=== PATIENT | male | born 1960 | race Two or more races ===

== ENCOUNTER 2018-07-27 11:06 | Emergency (ER) | payer OTHER ==
[~2018-07-27] VITALS: Ht 165.1 cm; Wt 68.0 kg
[2018-07-27 11:35] VITALS: BP 146/83
--- NOTE | 2018-07-27 11:35 | NUR ---
ED Nurse Note: Pt states that he was told by his PCP to come to ED R/O PNA. He states that he needs an xray and CT scan to make sure he does not have PNA. at time of arrival patient denies any pain
--- NOTE | 2018-07-27 12:45 | Emergency Room Report ---
History of Present Illness General Chief Complaint: General Complaint Present Illness Allergies: Coded Allergies: No Known Allergies (Unverified , 07/11/18) Nursing Documentation-PMH Hx Cardiac Problems: No Hx Cancer: No Hx Gastrointestinal Problems: No Hx Neurological Problems: Yes Hx Cerebrovascular Accident: Yes - Stroke, R weakness Physical Exam Vital Signs Date Time Temp Pulse Resp B/P (MAP) Pulse Ox O2 Delivery O2 Flow Rate FiO2 07/27/18 11:26 98.1 65 18 146/83 96 Room Air Medical Decision Making PA Attestation Dr. Pagan is my supervising Physician whom patient management has been discussed with. Diagnostic Impression: Primary Impression: Cough in adult Last Vital Signs Date Time Temp Pulse Resp B/P (MAP) Pulse Ox O2 Delivery O2 Flow Rate FiO2 07/27/18 11:35 98.1 62 18 146/83 96 Room Air Disposition: HOME, SELF-CARE Condition: Stable Scripts No Active Prescriptions or Reported Meds Patient Instructions: Medical Screening Exam Additional Instructions: Take any previously prescribed medications as directed. Per RADIOLOGIST: imaging does not show pneumonia, there is evidence of chronic lung changes. Follow up with a Primary Care Provider in 3-5 days, even if your symptoms have resolved. --Please review list of primary care clinics, if you do not already have a primary care provider Return sooner to ED if new symptoms occur, or current symptoms become worse. - Please note that this Emergency Department Report was dictated using [employer] operator technology software, occasionally this can lead to erroneous entry secondary to interpretation by the dictation equipment. Sonya Arrington Jul 27, 2018 12:45
--- NOTE | 2018-07-27 14:36 | Diagnostic Imaging Report ---
Indication: Chest pain Comparison: 07/14/2018 A single view chest radiograph was obtained. Findings: The comparison study is dissimilar technically. Having said that, on the prior exam, there may be some interstitial disease. Regardless, the current examination shows clear lungs. There may be some minimal atelectasis at the left lung base. Heart is borderline enlarged. Aorta is mildly ectatic. Bones are osteopenic. IMPRESSION: No acute disease
[2018-07-27 14:44] VITALS: BP 129/81
--- NOTE | 2018-07-27 14:44 | NUR ---
ED Nurse Note: Pt. AAOx4. left with steady and all belongings. Pt. education done regarding d/c papers and prescriptions. Pt. verbalized the uderstanding of the teaching. VSS. ID armband removed.
== END 2018-07-27 14:44 | disposition home or self-care (01) ==
LOC: EMR 12:54
DX: R05 Cough (principal); I69.351 Hemiplegia and hemiparesis following cerebral infarction affecting right dominant side
CPT/HCPCS: 71045; 99283